=== PATIENT | female | born 2005 | race Caucasian/White ===

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

== ENCOUNTER 2024-02-13 04:40 | Inpatient (IN) | payer OTHER, SELFPAY ==
[2024-02-13 04:45] VITALS: BP 132/88; PULSE 67; O2SAT 99
[2024-02-13 04:54] VITALS: BP 110/71; PULSE 70; RESP 12; TEMP 36.7; O2SAT 98; BMI 36.7
--- NOTE | 2024-02-13 05:00 | MHC.EDTECH ---
[facility] [place] [id number]
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
[2024-02-13 06:45] LABS: MANUAL DIFF FLAG NO
[2024-02-13 06:47] LABS: Appearance Urine Clear; Color Urine Yellow; Glucose Urine UA Negative (Negative); Leukocyte Esterase Urine Negative (Negative); Nitrite Urine Negative (Negative); Specific Gravity - Urine 1.025 (1.005-1.025); Urine Blood Negative (Negative); Urine Ketones Negative (Negative); Urine Protein Negative (Neg-Trace)
[2024-02-13 06:48] LABS: UPreg QC Valid YES; Urine Pregnancy NEGATIVE (NEGATIVE)
[2024-02-13 06:58] LABS: Basophils Percent Auto 0.3 % (0-2); Eosinophils Absolute Auto 0.2 X10*3/uL (0.0-0.4); Eosinophils Percent Auto 1.7 % (0-4); Hematocrit 37.9 % (37.0-47.0); Hemoglobin 12.7 g/dl (12.0-16.0); Imm Gran Abs Auto 0.02 X10*3/uL (0.00-0.03); Imm Gran Pct Auto 0.2 % (0.0-0.4); Lymphocytes Percent Auto 33.8 % (20-40); Mean Corpuscular HGB Conc 33.5 g/dl (31.0-35.0); Mean Corpuscular Hemoglobin 28.9 pg (27.0-33.0); Mean Corpuscular Volume 86.1 fL (80.0-98.0); Mean Platelet Volume 10.1 fL (9.4-12.3); Monocytes Absolute Auto 0.5 X10*3/uL (0.1-1.2); Monocytes Percent Auto 6.1 % (2-11); Neutrophils Percent Auto 57.9 % (45-73); Platelet Count 268 X10*3/uL (160-400); Red Cell Distribution Width 11.7 % (11.0-16.0); White Blood Count 8.7 X10*3/uL (4.8-10.8)
[2024-02-13 07:03] LABS: Amphetamine Screen Urine Not Detected (Not Detect); Barbiturates, Urine Not Detected (Not Detect); Benzodiazepines Screen Urine Not Detected (Not Detect); Buprenorphine Scr Not Detected (Not Detect); Cannabinoid Screen Urine POSITIVE (Not Detect); Cocaine Screen Urine Not Detected (Not Detect); Fentanyl, urine Not Detected (Not Detect); Methadone Screen, Urine Not Detected (Not Detect); Opiate Screen Urine Not Detected (Not Detect); Oxycodone Screen Urine Not Detected (Not Detect); Phencyclidine Screen Urine Not Detected (Not Detect)
[2024-02-13 07:06] LABS: Alanine Aminotransferase 16 U/L (0-31); Alkaline Phosphatase 87 U/L (39-117); Anion Gap 13 (12-20); Aspartate Amino Transferase 17 U/L (5-31); Bilirubin Direct 0.1 mg/dL (0.0-0.5); Bilirubin Total 0.4 mg/dL (0.0-1.0); Blood Urea Nitrogen 19 mg/dL (9-16); Calcium 9.3 mg/dL (8.4-10.2); Carbon Dioxide 25 mmol/L (22-29); Chloride 106 mmol/L (96-108); Creatinine Clr Calc Pharmacy 140.9; Estimated Glomerular Filt Rate > 60; Ethanol < 10 mg/dL; Glucose Random 97 mg/dL (60-115); Magnesium 2.1 mg/dL (1.6-2.6); Potassium 3.9 mmol/L (3.3-5.1); Sodium 140 mmol/L (135-145); Total Protein 6.7 g/dL (6.5-8.0)
[2024-02-13 10:27] VITALS: BP 112/65; PULSE 70; RESP 16; O2SAT 96
--- NOTE | 2024-02-13 12:16 | PC.NURSE ---
Patient moved from ED 16 to 4, patient is calm and cooperative, alert and oriented x4, offers no complaints, respirations even and unlabored, now sitting upright in bed reading. patient aware of plan of care for inpatient bedsearch
--- NOTE | 2024-02-13 18:14 | PC.NURSE ---
SPOKE WTIH BRIELLE BOWDEN LPN FROM [employer] WITH PTS PERMISSION. UPDATED HER ON PLAN FOR INPT, BEDSEARCH ONGOING. CONTACT FOR THEM [phone]
--- NOTE | 2024-02-13 19:05 | PC.NURSE ---
patient appears to remain at rest at present asking many questions about a lateral transfer for wich t/w has answered but patient asksk in different ways seemingly wanting a different answer. patient seems in no distress.
--- NOTE | 2024-02-14 10:52 | PHA.MEDREC ---
Addendum entered by Ton Dash RPh 02/14/24 11:00: Reviewed by [facility] Original Note: Pharmacy Consult ? Medication Reconciliation Pharmacy has completed the medication reconciliation. reviewed med rec completed by nursing.
--- NOTE | 2024-02-14 11:33 | MHC.CARE ---
initial boarding completed. ID number [id number] on 02/13
[2024-02-14 14:00] VITALS: BP 111/71; PULSE 68; RESP 16; TEMP 36.7; O2SAT 98
[2024-02-14 19:46] VITALS: BP 121/74; PULSE 76; RESP 16; TEMP 36.7; O2SAT 98
--- NOTE | 2024-02-15 05:04 | PC.NURSE ---
Patient slept through the night, no distress observed/reported, med rec completed/currently not on any medication, disposition per care team is section 12 inpatient bed search, no major behavior and safety issues, patient was at time tearful, safety check maintained on 15 minutes, VSS, will continue to monitor
[2024-02-15 06:28] VITALS: BP 110/72; PULSE 76; TEMP 36.8; O2SAT 99
--- NOTE | 2024-02-15 07:03 | PC.NURSE ---
Assumed care of patient at 0645, patient appears to be in no distress this am, currently laying in bed watching TV, respirations even and unlabored. Continue plan of care for inpatient bedsearch
--- NOTE | 2024-02-15 09:47 | PC.NURSE ---
[employer] called requesting to talk with patient, patient currently sleeping. (mr. Davalos [phone])
[2024-02-15 15:00] VITALS: BP 122/66; PULSE 92; RESP 16; TEMP 36.5; O2SAT 99
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
[2024-02-15 18:30] VITALS: BMI 37.5
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
[2024-02-15 20:00] VITALS: BP 133/84; PULSE 96; RESP 15; TEMP 36.4; O2SAT 97
[2024-02-15] MEDS: Acetaminophen 325 MG TABLET 650 MG PO (21:09)
[2024-02-16 08:24] VITALS: BP 108/58; PULSE 80; RESP 16; TEMP 36.4; O2SAT 97
[2024-02-16 09:37] LABS: Estimated Average Glucose 105 mg/dL; Hemoglobin A1c % 5.3 % (<6.0)
[2024-02-16 09:59] LABS: Cholesterol 211 mg/dL (<200); HDL Cholesterol 41 mg/dL (>40); LDL Cholesterol Calculated 111 mg/dL (<100); Triglycerides 296 mg/dL (<150)
--- NOTE | 2024-02-16 12:35 | P.HPPS_ITS ---
HPI Date of Service: 02/16/24 Chief Complaint: depressed/SI Sources of Information: patient interviewed, chart reviewed and crisis/core team assessment reviewed HPI Subjective Notes: Savage Warning and Conditional Voluntary Healthcare Proxy: No Guardianship: No Medical Problems Affecting Mental Status: No Narrative: 18 yo female, hx of bipolar disorder, reportedly abruptly stopped medications 2- 3 weeks ago with exacerbation of sx. I feel ugly I have an ugly body and now an ugly face . I want to be pretty, I have ruined myself. Pt reports SIBS (burning), SI with plan without hx of attempts and cyclic episodes of insomnia, poor appetite and recent weight loss. Reports irritability and presents with significant irritability and resistence to interview. Reports meds are not working -abilify, lamictal, trazodone, hydroxyzine and are causing weight gain. Pt leaves our meeting a few minutes into it, yelling that she does not tolerate repetitive questions and people need to listen once or they are out of luck. Past Psychiatric History: Refuses to answer Medical Evaluation Reviewed: Yes [facility] Medical History (Updated 02/16/24 @ 19:39 by Marlena Sanchez APRN) Bipolar disorder Family History: mother is bipolar Social History: Working at [employer]. Substance History: cannabis Trauma History: Refuses to answer Diagnostics Vital Signs (24Hr): Vital Signs - 24 hr 02/15/24 15:00 02/15/24 20:00 02/16/24 08:24 Temperature 97.7 F 97.6 F 97.6 F Pulse Rate 92 96 80 Respiratory Rate 16 15 16 Blood Pressure 122/66 133/84 108/58 L Pulse Oximetry 99 97 97 Oxygen Delivery Method Room Air Room Air BMI result Body Mass Index 37.5 Labs 02/13/24 06:39 02/13/24 06:39 Labs: Laboratory Results - last 48 hr 02/16/24 08:51 Estimat Average Glucose 105 Hemoglobin A1c % 5.3 Triglycerides 296 H Cholesterol 211 H LDL Cholesterol, Calc 111 H HDL Cholesterol 41 TSH 3.10 Meds/Allergies Meds Home Medications ?Medication ?Instructions ?Recorded ?Confirmed ?Type No Known Home Meds 02/13/24 02/13/24 History Allergies Allergies Allergy/AdvReac Type Severity Reaction Status Date / Time No Known Allergies Allergy Verified 02/13/24 04:59 Mental Status Exam Mental Status Exam Patient Appearance: Appropriate Patient Orientation: Person, Place, Time and Situation Level of Consciousness: Alert Patient Behavior: Talkative, Restless, Belligerent, Resistive to Care, Avoidant, Distractible, Crying, Impulsive and Poor Eye Contact Mood Description: Withdrawn, Depressed, Hostile, Labile and Angry Affect Description: Hostile, Labile and Angry Patient Cognition Impaired: No Ability to Follow Directions: Fair Speech Pattern: Spontaneous Speech Memory Description: Episodic Impaired Hallucinations: None Delusions: Not Present Thought Process: Racing, Distracted and Rumination Thought Content: positive for Circumstantial, positive for Tangential and positive for Suicidal Ideation Depressive Symptoms: Increased Irritability, Difficulty Sleeping, Changes in Appetite, Significant Weight Loss, Loss of Int. in Activity, Feelings of Worthlessness, Hopelessness, Unhappiness, Thoughts of /Suicide, Low Self Esteem, Loss of Energy and Difficulty Concentrating Abnormal Motor Activity Signs and Symptoms: Agitation and Restlessness Judgement: Poor Assessment & Plan Assessment & Plan (1) Bipolar disorder: Status: Acute Code(s): F31.9 - Bipolar disorder, unspecified Plan Bipolar Disorder. Plan: Admit, CV, 15 minute checks EKG Pt refusing to discuss meds today. Will suggest return to [facility] to minimize her concerns about weight gain. Continue Olanzapine prn Full milieu encouraged Collateral Contact Discharge planning Patient educated on: other Reason for continued inpatient stay Substantial Risk for: rapid decompensation Statement Statement: I have reviewed the history and physical and performed a pertinent examination on my patient. No changes have occurred unless specified. If the History and Physical was not performed prior to admission, the Hospitalist's service will be consulted for completing the admission physical. Time Spent With Patient Time: Total time managing care of this patient today ____ minutes.
[2024-02-16] MEDS: OLANZapine 5 MG TABLET PO (19:37)
[2024-02-16 20:00] VITALS: BP 110/76; PULSE 88; RESP 20; TEMP 36.4; O2SAT 99
[2024-02-16] MEDS: traZODone HCL 50 MG TABLET PO (22:22)
[2024-02-17 08:00] VITALS: BP 98/74; PULSE 100; RESP 16; TEMP 36.4; O2SAT 99
--- NOTE | 2024-02-17 11:16 | HO.PSYCHPN ---
Subjective Subjective Date of Service: 02/17/24 Reason For Visit: depressed/SI Subjective Notes: Conditional Voluntary Healthcare Proxy: No Guardianship: No Medical Problems Affecting Mental Status: No Interim History: Met with pt and Wes ARCEO Discussed medications. Pt not wanting to be sedate. Agreed to stop Abilify, replace with Vraylar and re-start Lamictal, both being agents with good SE profiles, less sedating, less weight gain. Team reports episodic lability and crying, mostly related to relationship issues. Medication Compliance: Yes Side effects from medications: Yes (sedation, weight gain) Attending Groups: Intermittent Review of Systems Acute medical concerns: No Medical Review of Systems: unchanged Review of Systems Review of Systems Yes all other systems are reviewed and are negative Mental Status Exam Mental Status Exam Patient Appearance: Appropriate Patient Orientation: Person, Place, Time and Situation Level of Consciousness: Alert Patient Behavior: Talkative, Restless, Belligerent, Resistive to Care, Avoidant, Distractible, Crying, Impulsive and Poor Eye Contact Mood Description: Withdrawn, Depressed, Hostile, Labile and Angry Affect Description: Hostile, Labile and Angry Patient Cognition Impaired: No Ability to Follow Directions: Fair Speech Pattern: Spontaneous Speech Memory Description: Episodic Impaired Hallucinations: None Delusions: Not Present Thought Process: Racing, Distracted and Rumination Thought Content: positive for Circumstantial, positive for Tangential and positive for Suicidal Ideation Depressive Symptoms: Increased Irritability, Difficulty Sleeping, Changes in Appetite, Significant Weight Loss, Loss of Int. in Activity, Feelings of Worthlessness, Hopelessness, Unhappiness, Thoughts of /Suicide, Low Self Esteem, Loss of Energy and Difficulty Concentrating Abnormal Motor Activity Signs and Symptoms: Agitation and Restlessness Judgement: Poor Diagnostics Vital Signs (24Hr): Vital Signs - 24 hr 02/16/24 20:00 02/17/24 08:00 Temperature 97.6 F 97.5 F Pulse Rate 88 100 Respiratory Rate 20 16 Blood Pressure 110/76 98/74 Pulse Oximetry 99 99 Oxygen Delivery Method Room Air Room Air BMI result Body Mass Index 37.5 Labs 02/13/24 06:39 02/13/24 06:39 Labs: Laboratory Results - last 48 hr 02/16/24 08:51 Estimat Average Glucose 105 Hemoglobin A1c % 5.3 Triglycerides 296 H Cholesterol 211 H LDL Cholesterol, Calc 111 H HDL Cholesterol 41 TSH 3.10 Medications Medications Current Medications Acetaminophen (Acetaminophen 325 Mg Tablet) 650 mg PO Q6H PRN PRN Reason: Headache/Pain Mild Scale (1-3) Last Admin: 02/15/24 21:09 Dose: 650 mg Al Hydroxide/Mg Hydroxide (Magnesium Hydrox/Alum Hydrox 30 Ml Oral.Susp) 30 ml PO Q6H PRN PRN Reason: Heartburn/Nausea Hydroxyzine HCl (Hydroxyzine Hcl 25 Mg Tablet) 25 mg PO Q6H PRN PRN Reason: Anxiety Magnesium Hydroxide (Milk Of Magnesia 30 Ml Oral.Susp) 30 ml PO DAILY PRN PRN Reason: Constipation Nicotine (Nicotine 21 Mg Patch.Td24) 21 mg TRANSDERMA DAILY PRN PRN Reason: smoking cessation Nicotine Polacrilex (Nicotine Polacrilex 2 Mg Gum) 4 mg BUCCAL Q2H PRN PRN Reason: Nicotine Cravings Olanzapine (Olanzapine 5 Mg Tablet) 5 mg PO TID PRN PRN Reason: agitation Last Admin: 02/16/24 19:37 Dose: 5 mg Trazodone HCl (Trazodone Hcl 50 Mg Tablet) 50 mg PO BEDTIME MRX1 PRN PRN Reason: Insomnia Last Admin: 02/16/24 22:22 Dose: 50 mg Allergies Allergies Allergy/AdvReac Type Severity Reaction Status Date / Time No Known Allergies Allergy Verified 02/13/24 04:59 Assessment & Plan Assessment & Plan (1) Bipolar disorder: Status: Acute Code(s): F31.9 - Bipolar disorder, unspecified Plan Bipolar Disorder. Plan: Admit, CV, 15 minute checks EKG Pt refusing to discuss meds today. Will suggest return to [facility] to minimize her concerns about weight gain. Continue Olanzapine prn Full milieu encouraged Collateral Contact Discharge planning 02/16: JEFFRY Burgos Lamictal 50 mg HS Vraylar 3 mg a.m. Reason for continued inpatient stay Substantial Risk for: rapid decompensation Time Spent With Patient Time: Total time managing care of this patient today ____ minutes.
[2024-02-17 20:00] VITALS: RESP 18
[2024-02-17] MEDS: lamoTRIgine 25 MG TABLET 50 MG PO (23:20)
[2024-02-18 08:20] VITALS: BP 131/72; PULSE 73; RESP 18; TEMP 36.9; O2SAT 99
--- NOTE | 2024-02-18 10:31 | P.PNPSI_ITS ---
Subjective Subjective Date of Service: 02/18/24 Reason For Visit: depressed/SI Subjective Notes: Conditional Voluntary Healthcare Proxy: No Guardianship: No Medical Problems Affecting Mental Status: No Interim History: Angry, agitated with medications as she believes lamictal made her sedate. Refused Vraylar as well. Met with pt and Wes Araya. Review of job frida requirements to return to her course work-therapy, medications, appt attendance. Reviewed meds again with pt. Will continue with Lamictal, Vraylar in lower dosages. Pt to discuss living with boyfriend as she reports she had been asked to leave mother's home. If boyfriend is unable to help pt with housing, she will allow a call to mother as she reports both she and mother do not want her going to custodial. Medication Compliance: Intermittent Side effects from medications: No Attending Groups: Intermittent Review of Systems Acute medical concerns: No Medical Review of Systems: unchanged Review of Systems Review of Systems feeling tired Mental Status Exam Mental Status Exam Patient Appearance: Appropriate Patient Orientation: Person, Place, Time and Situation Level of Consciousness: Alert Patient Behavior: Talkative, Restless, Belligerent, Resistive to Care, Avoidant, Distractible, Crying, Impulsive and Poor Eye Contact Mood Description: Withdrawn, Depressed, Hostile, Labile and Angry Affect Description: Hostile, Labile and Angry Patient Cognition Impaired: No Ability to Follow Directions: Fair Speech Pattern: Spontaneous Speech Memory Description: Episodic Impaired Hallucinations: None Delusions: Not Present Thought Process: Racing, Distracted and Rumination Thought Content: positive for Circumstantial, positive for Tangential and positive for Suicidal Ideation Depressive Symptoms: Increased Irritability, Difficulty Sleeping, Changes in Appetite, Significant Weight Loss, Loss of Int. in Activity, Feelings of Worthlessness, Hopelessness, Unhappiness, Thoughts of /Suicide, Low Self Esteem, Loss of Energy and Difficulty Concentrating Abnormal Motor Activity Signs and Symptoms: Agitation and Restlessness Judgement: Poor Diagnostics Vital Signs (24Hr): Vital Signs - 24 hr 02/17/24 20:00 02/18/24 08:20 Temperature 98.5 F Pulse Rate 73 Respiratory Rate 18 18 Blood Pressure 131/72 Pulse Oximetry 99 Oxygen Delivery Method Room Air BMI result Body Mass Index 37.5 Labs 02/13/24 06:39 02/13/24 06:39 Medications Medications Current Medications Acetaminophen (Acetaminophen 325 Mg Tablet) 650 mg PO Q6H PRN PRN Reason: Headache/Pain Mild Scale (1-3) Last Admin: 02/15/24 21:09 Dose: 650 mg Al Hydroxide/Mg Hydroxide (Magnesium Hydrox/Alum Hydrox 30 Ml Oral.Susp) 30 ml PO Q6H PRN PRN Reason: Heartburn/Nausea Cariprazine (Cariprazine Hcl 3 Mg Capsule) 3 mg PO DAILY YOSHI Last Admin: 02/18/24 10:23 Dose: Not Given Hydroxyzine HCl (Hydroxyzine Hcl 25 Mg Tablet) 25 mg PO Q6H PRN PRN Reason: Anxiety Lamotrigine (Lamotrigine 25 Mg Tablet) 50 mg PO BEDTIME YOSHI Last Admin: 02/17/24 23:20 Dose: 50 mg Magnesium Hydroxide (Milk Of Magnesia 30 Ml Oral.Susp) 30 ml PO DAILY PRN PRN Reason: Constipation Nicotine (Nicotine 21 Mg Patch.Td24) 21 mg TRANSDERMA DAILY PRN PRN Reason: smoking cessation Nicotine Polacrilex (Nicotine Polacrilex 2 Mg Gum) 4 mg BUCCAL Q2H PRN PRN Reason: Nicotine Cravings Olanzapine (Olanzapine 5 Mg Tablet) 5 mg PO TID PRN PRN Reason: agitation Last Admin: 02/16/24 19:37 Dose: 5 mg Trazodone HCl (Trazodone Hcl 50 Mg Tablet) 50 mg PO BEDTIME MRX1 PRN PRN Reason: Insomnia Last Admin: 02/16/24 22:22 Dose: 50 mg Allergies Allergies Allergy/AdvReac Type Severity Reaction Status Date / Time No Known Allergies Allergy Verified 02/13/24 04:59 Assessment & Plan Assessment & Plan (1) Bipolar disorder: Status: Acute Code(s): F31.9 - Bipolar disorder, unspecified Plan Bipolar Disorder. Plan: Admit, CV, 15 minute checks EKG Pt refusing to discuss meds today. Will suggest return to [facility] to minimize her concerns about weight gain. Continue Olanzapine prn Full milieu encouraged Collateral Contact Discharge planning 02/17- Vraylar 1.5 mg daily Lamictal 12.5 mg daily Reason for continued inpatient stay Substantial Risk for: harm to self and rapid decompensation Time Spent With Patient Time: Total time managing care of this patient today ____ minutes.
[2024-02-18 14:22] VITALS: BMI 37.3
[2024-02-18 19:35] VITALS: BP 115/66; PULSE 85; RESP 18; TEMP 37; O2SAT 98
[2024-02-18] MEDS: lamoTRIgine 25 MG TABLET 12.5 MG PO (21:27)
[2024-02-19 08:00] VITALS: BP 119/73; PULSE 93; RESP 16; TEMP 36.9; O2SAT 98
--- NOTE | 2024-02-19 11:43 | P.PNPSI_ITS ---
Subjective Subjective Date of Service: 02/19/24 Reason For Visit: depressed/SI Subjective Notes: Conditional Voluntary Interim History: Reviewed with Dr. Hsu. Labile. Calm and cooperative when meeting with patient. She reports he father plans on finding her a place to stay after discharge. Pt stated, I was feeling suicidal because [facility] feels like senior living and I didn't have time to do the things I wanted to do . Later on, pt observed crying loudly in room stating, I don't want to live anymore! Someone just kill me! pt was placed on 5 minute safety checks. Refused Vraylar this morning. Medication Compliance: Intermittent Review of Systems Constitutional: Reports as per HPI Eyes: Reports as per HPI Reports as per HPI Cardiovascular: Reports as per HPI Respiratory: Reports as per HPI Gastrointestinal: Reports as per HPI Genitourinary: Reports as per HPI Musculoskeletal: Reports as per HPI Skin/Breast: Reports as per HPI Reports as per HPI Psychiatric: Reports as per HPI Endocrine: Reports as per HPI Hematologic/Lymphatic: Reports as per HPI Allergic/Immunologic: Reports as per HPI Mental Status Exam Mental Status Exam Narrative: Pt is alert and oriented; behavior is calm, crying loudly; dressed in casual attire; mood is described as anxious and depressed presents labile; eye contact appropriate; Speech is normal rate, volume and not pressured; thought process is organized and goal directed; Thought content is on tx; pt yelling out, asking people to kill her. Diagnostics Vital Signs (24Hr): Vital Signs - 24 hr 02/18/24 19:35 Temperature 98.6 F Pulse Rate 85 Respiratory Rate 18 Blood Pressure 115/66 Pulse Oximetry 98 Oxygen Delivery Method Room Air BMI result Body Mass Index 37.3 Labs 02/13/24 06:39 02/13/24 06:39 Medications Medications Current Medications Acetaminophen (Acetaminophen 325 Mg Tablet) 650 mg PO Q6H PRN PRN Reason: Headache/Pain Mild Scale (1-3) Last Admin: 02/15/24 21:09 Dose: 650 mg Al Hydroxide/Mg Hydroxide (Magnesium Hydrox/Alum Hydrox 30 Ml Oral.Susp) 30 ml PO Q6H PRN PRN Reason: Heartburn/Nausea Cariprazine (Cariprazine Hcl 1.5 Mg Capsule) 1.5 mg PO DAILY YOSHI Last Admin: 02/19/24 11:32 Dose: Not Given Hydroxyzine HCl (Hydroxyzine Hcl 25 Mg Tablet) 25 mg PO Q6H PRN PRN Reason: Anxiety Lamotrigine (Lamotrigine 25 Mg Tablet) 12.5 mg PO BEDTIME YOSHI Last Admin: 02/18/24 21:27 Dose: 12.5 mg Magnesium Hydroxide (Milk Of Magnesia 30 Ml Oral.Susp) 30 ml PO DAILY PRN PRN Reason: Constipation Nicotine (Nicotine 21 Mg Patch.Td24) 21 mg TRANSDERMA DAILY PRN PRN Reason: smoking cessation Nicotine Polacrilex (Nicotine Polacrilex 2 Mg Gum) 4 mg BUCCAL Q2H PRN PRN Reason: Nicotine Cravings Olanzapine (Olanzapine 5 Mg Tablet) 5 mg PO TID PRN PRN Reason: agitation Last Admin: 02/16/24 19:37 Dose: 5 mg Allergies Allergies Allergy/AdvReac Type Severity Reaction Status Date / Time No Known Allergies Allergy Verified 02/13/24 04:59 Assessment & Plan Assessment & Plan (1) Bipolar disorder: Status: Acute Code(s): F31.9 - Bipolar disorder, unspecified Plan Bipolar Disorder. Plan: Admit, CV, 15 minute checks EKG Pt refusing to discuss meds today. Will suggest return to [facility] to minimize her concerns about weight gain. Continue Olanzapine prn Full milieu encouraged Collateral Contact Discharge planning 02/17- Vraylar 1.5 mg daily Lamictal 12.5 mg daily 02/18: Labile. Calm and cooperative when meeting with patient. She reports he father plans on finding her a place to stay after discharge. Pt stated, I was feeling suicidal because [facility] feels like senior living and I didn't have time to do the things I wanted to do . Later on, pt observed crying loudly in room stating, I don't want to live anymore! Someone just kill me! pt was placed on 5 minute safety checks. Refused Vraylar this morning. Patient educated on: diagnosis, medication risk/benefits and therapeutic strategies Reason for continued inpatient stay Substantial Risk for: harm to self and med/psych decompensation Time Spent With Patient Time: Total time managing care of this patient today _20___ minutes.
[2024-02-19 20:24] VITALS: BP 113/68; PULSE 85; TEMP 36.9; O2SAT 98
[2024-02-19] MEDS: lamoTRIgine 25 MG TABLET 12.5 MG PO (20:43)
[2024-02-20 08:10] VITALS: BP 115/70; PULSE 99; RESP 18; TEMP 36.4; O2SAT 98
--- NOTE | 2024-02-20 10:02 | HO.PSYCHPN ---
Subjective Subjective Date of Service: 02/20/24 Reason For Visit: depressed/SI Interim History: Met with patient; discussed with team Patient says she is feeling pretty good wants discharge today. She denies any SI or urges to self-harm. She says that she now realizes she already had a therapist, someone at [facility] named either Abdiel or Cherry. Also says she has psychiatrist that she set up on her own. Patient says she found a place to stay and will be staying at her mother's friend's house but that she needs to go to day. Ancillary Services Manager Therapy inquired as to why she said because her mother is able to come and pick her up today but will not be available until later in the afternoon or evening on Thursday. Ancillary Services Manager Therapy explained that team concluded that given patient struggles in the community it was in her best interest to hold her over the weekend so that aftercare can be thoroughly set up and that engineering writer agreed with this plan. Patient asked over and over for discharge today, saying it was not fair, saying that no one cares about her and people truly do not want to help her. That said she was able to remain in overall good behavioral and impulse control. Regarding medication, she says she will continue taking Lamictal. However she does not want Vraylar; after having read about it she does not like side-effect profile Mental Status Exam Mental Status Exam Narrative: Pt is alert and oriented; behavior is mostly cooperative and calm though intermittently irritable and sometimes acting out; patient is not in distress; dressed in casual attire with adequate hygiene; mood is described as good and affect congruent though somewhat constricted; eye contact appropriate; Speech is normal rate, volume and prosody and not pressured; no psychomotor agitation/retardation present; thought process is organized and goal directed; Thought content is on discharge; otherwise pertinent to relevant topics and without any delusional content, paranoid ideations or grandiosity; denies any SI/HI. There is no evidence of perceptual disturbance. Patients insight and judgment impaired but adequate and likely at baseline Diagnostics Vital Signs (24Hr): Vital Signs - 24 hr 02/19/24 20:24 02/20/24 08:10 Temperature 98.5 F 97.5 F Pulse Rate 85 99 Respiratory Rate 18 Blood Pressure 113/68 115/70 Pulse Oximetry 98 98 Oxygen Delivery Method Room Air Room Air BMI result Body Mass Index 37.3 Labs 02/13/24 06:39 02/13/24 06:39 Medications Medications Current Medications Acetaminophen (Acetaminophen 325 Mg Tablet) 650 mg PO Q6H PRN PRN Reason: Headache/Pain Mild Scale (1-3) Last Admin: 02/15/24 21:09 Dose: 650 mg Al Hydroxide/Mg Hydroxide (Magnesium Hydrox/Alum Hydrox 30 Ml Oral.Susp) 30 ml PO Q6H PRN PRN Reason: Heartburn/Nausea Cariprazine (Cariprazine Hcl 1.5 Mg Capsule) 1.5 mg PO DAILY [facility] Last Admin: 02/20/24 08:22 Dose: Not Given Hydroxyzine HCl (Hydroxyzine Hcl 25 Mg Tablet) 25 mg PO Q6H PRN PRN Reason: Anxiety Lamotrigine (Lamotrigine 25 Mg Tablet) 12.5 mg PO BEDTIME [facility] Last Admin: 02/19/24 20:43 Dose: 12.5 mg Magnesium Hydroxide (Milk Of Magnesia 30 Ml Oral.Susp) 30 ml PO DAILY PRN PRN Reason: Constipation Nicotine (Nicotine 21 Mg Patch.Td24) 21 mg TRANSDERMA DAILY PRN PRN Reason: smoking cessation Nicotine Polacrilex (Nicotine Polacrilex 2 Mg Gum) 4 mg BUCCAL Q2H PRN PRN Reason: Nicotine Cravings Olanzapine (Olanzapine 5 Mg Tablet) 5 mg PO TID PRN PRN Reason: agitation Last Admin: 02/16/24 19:37 Dose: 5 mg Allergies Allergies Allergy/AdvReac Type Severity Reaction Status Date / Time No Known Allergies Allergy Verified 02/13/24 04:59 Assessment & Plan Assessment & Plan (1) Bipolar disorder: Status: Acute Code(s): F31.9 - Bipolar disorder, unspecified Plan Bipolar Disorder. 02/17- Vraylar 1.5 mg daily Lamictal 12.5 mg daily 02/18: Labile. Calm and cooperative when meeting with patient. She reports he father plans on finding her a place to stay after discharge. Pt stated, I was feeling suicidal because [facility] feels like long term and I didn't have time to do the things I wanted to do . Later on, pt observed crying loudly in room stating, I don't want to live anymore! Someone just kill me! pt was placed on 5 minute safety checks. Refused Vraylar this morning. 8/24 Patient says she is feeling pretty good wants discharge today. She denies any SI or urges to self-harm. She says that she now realizes she already had a therapist, someone at [facility] named either Abdiel or Cherry. Also says she has psychiatrist that she set up on her own. Patient says she found a place to stay and will be staying at her mother's friend's house but that she needs to go to day. Ancillary Services Manager Therapy inquired as to why she said because her mother is able to come and pick her up today but will not be available until later in the afternoon or evening on Thursday. Ancillary Services Manager Therapy explained that team concluded that given patient struggles in the community it was in her best interest to hold her over the weekend so that aftercare can be thoroughly set up and that engineering writer agreed with this plan. Patient asked over and over for discharge today, saying it was not fair, saying that no one cares about her and people truly do not want to help her. That said she was able to remain in overall good behavioral and impulse control. -Regarding medication, she says she will continue taking Lamictal. However she does not want Vraylar; after having read about it she does not like side-effect profile impression: Ancillary Services Manager Therapy agrees that discharging patient on the weekend is premature given her behaviors and struggles in the community prior to this admission; she remains with highly emotionally reactive and as recently as just yesterday she was yelling in the hallway for someone to kill her. Ancillary Services Manager Therapy understands that in the moment patient is just expressing herself and not actually wanting to ; however it seems in her best interest that she remain on the unit for her primary team to return so that she can receive the benefits from social work helping to secure a more stable discharge plan; it seems very unlikely that she has set up for herself a reliable therapist and prescriber, both of which she will need in order to remain stable, between Thursday evening and today. Plan: Admit, CV, 15 minute checks EKG Continue Lamictal Will discontinue Vraylar since she is refusing to take it Continue Olanzapine prn Full milieu encouraged Collateral Contact Discharge planning Patient educated on: diagnosis, medication risk/benefits and therapeutic strategies Informed Consent: understands Reason for continued inpatient stay Substantial Risk for: rapid decompensation Time Spent With Patient Time: Total time managing care of this patient today ____ minutes.
[2024-02-20 20:07] VITALS: BP 121/72; PULSE 99; TEMP 36.7; O2SAT 96
[2024-02-20] MEDS: hydrOXYzine HCL 25 MG TABLET PO (20:30)
[2024-02-20] MEDS: lamoTRIgine 25 MG TABLET 12.5 MG PO (20:30)
[2024-02-20] MEDS: OLANZapine 5 MG TABLET PO (20:30)
[2024-02-21 20:00] VITALS: BP 117/68; PULSE 74; TEMP 36.9; O2SAT 100
[2024-02-21] MEDS: lamoTRIgine 25 MG TABLET 12.5 MG PO (21:17)
--- NOTE | 2024-02-21 23:43 | P.PNPSI_ITS ---
Subjective Subjective Date of Service: 02/21/24 Reason For Visit: depressed/SI Interim History: Met with patient; discussed with team Patient calm most of the day. Towards the later afternoon she started crying saying she no longer has any were to go. Patient was going to go to stay with a friend of her mother's. Client Service Executive tried to discuss; patient said her mom no longer wants to go there , worried that patient will ruin her reputation... Patient tearful saying she has no where to go. Client Service Executive tried to discuss disposition plans but patient did not want to talk further Mental Status Exam Mental Status Exam Narrative: Pt is alert and oriented; behavior is mostly cooperative and calm though intermittently irritable and sometimes acting out; today more to; patient is not in distress; dressed in casual attire with adequate hygiene; mood is described as i have no where to go and affect congruent tearful, constricted; eye contact appropriate; Speech is normal rate, volume and prosody and not pressured; no psychomotor agitation/retardation present; thought process is organized and goal directed; Thought content is on discharge; otherwise pertinent to relevant topics and without any delusional content, paranoid ideations or grandiosity; denies any SI/HI. There is no evidence of perceptual disturbance. Patients insight and judgment impaired but adequate and likely at baseline Diagnostics Vital Signs (24Hr): Vital Signs - 24 hr 02/21/24 20:00 Temperature 98.4 F Pulse Rate 74 Blood Pressure 117/68 Pulse Oximetry 100 Oxygen Delivery Method Room Air BMI result Body Mass Index 37.3 Labs 02/13/24 06:39 02/13/24 06:39 Medications Medications Current Medications Acetaminophen (Acetaminophen 325 Mg Tablet) 650 mg PO Q6H PRN PRN Reason: Headache/Pain Mild Scale (1-3) Last Admin: 02/15/24 21:09 Dose: 650 mg Al Hydroxide/Mg Hydroxide (Magnesium Hydrox/Alum Hydrox 30 Ml Oral.Susp) 30 ml PO Q6H PRN PRN Reason: Heartburn/Nausea Hydroxyzine HCl (Hydroxyzine Hcl 25 Mg Tablet) 25 mg PO Q6H PRN PRN Reason: Anxiety Last Admin: 02/20/24 20:30 Dose: 25 mg Lamotrigine (Lamotrigine 25 Mg Tablet) 12.5 mg PO BEDTIME YOSHI Last Admin: 02/21/24 21:17 Dose: 12.5 mg Magnesium Hydroxide (Milk Of Magnesia 30 Ml Oral.Susp) 30 ml PO DAILY PRN PRN Reason: Constipation Nicotine (Nicotine 21 Mg Patch.Td24) 21 mg TRANSDERMA DAILY PRN PRN Reason: smoking cessation Nicotine Polacrilex (Nicotine Polacrilex 2 Mg Gum) 4 mg BUCCAL Q2H PRN PRN Reason: Nicotine Cravings Olanzapine (Olanzapine 5 Mg Tablet) 5 mg PO TID PRN PRN Reason: agitation Last Admin: 02/20/24 20:30 Dose: 5 mg Allergies Allergies Allergy/AdvReac Type Severity Reaction Status Date / Time No Known Allergies Allergy Verified 02/13/24 04:59 Assessment & Plan Assessment & Plan (1) Bipolar disorder: Status: Acute Code(s): F31.9 - Bipolar disorder, unspecified Plan Bipolar Disorder. 02/17- Vraylar 1.5 mg daily Lamictal 12.5 mg daily 02/18: Labile. Calm and cooperative when meeting with patient. She reports he father plans on finding her a place to stay after discharge. Pt stated, I was feeling suicidal because [employer] feels like fdc and I didn't have time to do the things I wanted to do . Later on, pt observed crying loudly in room stating, I don't want to live anymore! Someone just kill me! pt was placed on 5 minute safety checks. Refused Vraylar this morning. 02/19 Patient says she is feeling pretty good wants discharge today. She denies any SI or urges to self-harm. She says that she now realizes she already had a therapist, someone at [facility] named either Abdiel or Cherry. Also says she has psychiatrist that she set up on her own. Patient says she found a place to stay and will be staying at her mother's friend's house but that she needs to go to day. Client Service Executive inquired as to why she said because her mother is able to come and pick her up today but will not be available until later in the afternoon or evening on Thursday. Client Service Executive explained that team concluded that given patient struggles in the community it was in her best interest to hold her over the weekend so that aftercare can be thoroughly set up and that policy writer sales agreed with this plan. Patient asked over and over for discharge today, saying it was not fair, saying that no one cares about her and people truly do not want to help her. That said she was able to remain in overall good behavioral and impulse control. -Regarding medication, she says she will continue taking Lamictal. However she does not want Vraylar; after having read about it she does not like side-effect profile 02/20 Patient calm most of the day. Towards the later afternoon she started crying saying she no longer has any were to go. Patient was going to go to stay with a friend of her mother's. Client Service Executive tried to discuss; patient said her mom no longer wants to go there , worried that patient will ruin her reputation... Patient tearful saying she has no where to go. Client Service Executive tried to discuss disposition plans but patient did not want to talk further impression: Client Service Executive agrees that discharging patient on the weekend is premature given her behaviors and struggles in the community prior to this admission; she remains with highly emotionally reactive and as recently as just yesterday she was yelling in the hallway for someone to kill her. Client Service Executive understands that in the moment patient is just expressing herself and not actually wanting to ; however it seems in her best interest that she remain on the unit for her primary team to return so that she can receive the benefits from social work helping to secure a more stable discharge plan; it seems very unlikely that she has set up for herself a reliable therapist and prescriber, both of which she will need in order to remain stable, between Thursday evening and today. Plan: Admit, CV, 15 minute checks EKG Continue Lamictal Will discontinue Vraylar since she is refusing to take it Continue Olanzapine prn Full milieu encouraged Collateral Contact Discharge planning Patient educated on: diagnosis and therapeutic strategies Informed Consent: understands and further education needed Reason for continued inpatient stay Substantial Risk for: rapid decompensation Time Spent With Patient Time: Total time managing care of this patient today ____ minutes.
[2024-02-22 08:19] VITALS: BP 132/67; PULSE 80; RESP 18; TEMP 36.4; O2SAT 96
--- NOTE | 2024-02-22 12:41 | P.PNPSI_ITS ---
Subjective Subjective Date of Service: 02/22/24 Reason For Visit: depressed/SI Subjective Notes: Conditional Voluntary Healthcare Proxy: No Guardianship: No Medical Problems Affecting Mental Status: No Interim History: Met with pt and together we called her father Mekhi, who is on the [facility] [phone]. Discussed history-he reports he does not believe pt is able to work and asks that we begin disability application with her. Discussed that we are starting this process, along with [facility] case mgt application, housing applications and [facility] applications. Mekhi reports he brought pt back to mom at age 15 and she has had a previous dx of ADHD, ODD, Bipolar II. Mom and step father agreed to take responsibility for her. He is not in a current position to offer housing, but wants to help and be available to pt in any way. Reports he is estranged from his family in the area and has no one to reach out to regarding options for safe living for pt. We discussed that pt, going to the street or an adult care home would place her at significant risk due to her lack of community exposure and urban knowledge, in addition to safety risks regarding assault, being taken advantage of. He agrees as well as pt agrees with this. Pt he reports has burned bridges with family due to unmanaged symptoms of illness. Pt concurs and acknowledges that sx mgt is important to address in moving forward. Pt tolerating Lamictal, will increase today. No behavioral issues on the unit. She is engaged. She did make a supportive comment to a peer, telling him his was beautiful . This peer inferred the comment not as it was meant and conflict arose which pt apologized for-a good example of the lack of social knowledge needed in community for her safety, and her lack of understanding of this. She is willing to work on making calls for services and is active in assisting in application processes for services today. We also contacted boyfriend Rock [phone] who offers his support and input on what services would help pt in community. She also agrees with this. Medication Compliance: Yes Side effects from medications: No Attending Groups: Intermittent Review of Systems Acute medical concerns: No Medical Review of Systems: unchanged Review of Systems Review of Systems Yes all other systems are reviewed and are negative Mental Status Exam Mental Status Exam Patient Appearance: Appropriate Patient Orientation: Person, Place, Time and Situation Level of Consciousness: Alert Patient Behavior: Appropriate, Talkative, Cooperative, Anxious, Distractible and Good Eye Contact Mood Description: Anxious and Apprehensive Affect Description: Anxious and Apprehensive Patient Cognition Impaired: No Ability to Follow Directions: Fair Speech Pattern: Spontaneous Speech Memory Description: Intact Hallucinations: None Delusions: Not Present Thought Process: Distracted Thought Content: positive for Circumstantial Depressive Symptoms: Difficulty Concentrating Abnormal Motor Activity Signs and Symptoms: Restlessness Judgement: Fair Diagnostics Vital Signs (24Hr): Vital Signs - 24 hr 02/21/24 20:00 02/22/24 08:19 Temperature 98.4 F 97.5 F Pulse Rate 74 80 Respiratory Rate 18 Blood Pressure 117/68 132/67 Pulse Oximetry 100 96 Oxygen Delivery Method Room Air Room Air BMI result Body Mass Index 37.3 Labs 02/13/24 06:39 02/13/24 06:39 Medications Medications Current Medications Acetaminophen (Acetaminophen 325 Mg Tablet) 650 mg PO Q6H PRN PRN Reason: Headache/Pain Mild Scale (1-3) Last Admin: 02/15/24 21:09 Dose: 650 mg Al Hydroxide/Mg Hydroxide (Magnesium Hydrox/Alum Hydrox 30 Ml Oral.Susp) 30 ml PO Q6H PRN PRN Reason: Heartburn/Nausea Hydroxyzine HCl (Hydroxyzine Hcl 25 Mg Tablet) 25 mg PO Q6H PRN PRN Reason: Anxiety Last Admin: 02/20/24 20:30 Dose: 25 mg Lamotrigine (Lamotrigine 25 Mg Tablet) 12.5 mg PO BEDTIME YOSHI Last Admin: 02/21/24 21:17 Dose: 12.5 mg Magnesium Hydroxide (Milk Of Magnesia 30 Ml Oral.Susp) 30 ml PO DAILY PRN PRN Reason: Constipation Nicotine (Nicotine 21 Mg Patch.Td24) 21 mg TRANSDERMA DAILY PRN PRN Reason: smoking cessation Nicotine Polacrilex (Nicotine Polacrilex 2 Mg Gum) 4 mg BUCCAL Q2H PRN PRN Reason: Nicotine Cravings Olanzapine (Olanzapine 5 Mg Tablet) 5 mg PO TID PRN PRN Reason: agitation Last Admin: 02/20/24 20:30 Dose: 5 mg Allergies Allergies Allergy/AdvReac Type Severity Reaction Status Date / Time No Known Allergies Allergy Verified 02/13/24 04:59 Assessment & Plan Assessment & Plan (1) Bipolar disorder: Status: Acute Code(s): F31.9 - Bipolar disorder, unspecified Plan Bipolar Disorder. 02/17- Vraylar 1.5 mg daily Lamictal 12.5 mg daily 02/18: Labile. Calm and cooperative when meeting with patient. She reports he father plans on finding her a place to stay after discharge. Pt stated, I was feeling suicidal because [employer] feels like jail and I didn't have time to do the things I wanted to do . Later on, pt observed crying loudly in room stating, I don't want to live anymore! Someone just kill me! pt was placed on 5 minute safety checks. Refused Vraylar this morning. 02/19 Patient says she is feeling pretty good wants discharge today. She denies any SI or urges to self-harm. She says that she now realizes she already had a therapist, someone at [facility] named either Abdiel or Cherry. Also says she has psychiatrist that she set up on her own. Patient says she found a place to stay and will be staying at her mother's friend's house but that she needs to go to day. Manager Of Case Management inquired as to why she said because her mother is able to come and pick her up today but will not be available until later in the afternoon or evening on Thursday. Manager Of Case Management explained that team concluded that given patient struggles in the community it was in her best interest to hold her over the weekend so that aftercare can be thoroughly set up and that business writer agreed with this plan. Patient asked over and over for discharge today, saying it was not fair, saying that no one cares about her and people truly do not want to help her. That said she was able to remain in overall good behavioral and impulse control. -Regarding medication, she says she will continue taking Lamictal. However she does not want Vraylar; after having read about it she does not like side-effect profile 02/20 Patient calm most of the day. Towards the later afternoon she started crying saying she no longer has any were to go. Patient was going to go to stay with a friend of her mother's. Manager Of Case Management tried to discuss; patient said her mom no longer wants to go there , worried that patient will ruin her reputation... Patient tearful saying she has no where to go. Manager Of Case Management tried to discuss disposition plans but patient did not want to talk further. 02/21 Increase Lamictal to 25 mg daily Applications initiated for [facility], Housing, Disability Care discussed with father and boyfriend with pt present. She is feeling supported. impression: Manager Of Case Management agrees that discharging patient on the weekend is premature given her behaviors and struggles in the community prior to this admission; she remains with highly emotionally reactive and as recently as just yesterday she was yelling in the hallway for someone to kill her. Manager Of Case Management understands that in the moment patient is just expressing herself and not actually wanting to ; however it seems in her best interest that she remain on the unit for her primary team to return so that she can receive the benefits from social work helping to secure a more stable discharge plan; it seems very unlikely that she has set up for herself a reliable therapist and prescriber, both of which she will need in order to remain stable, between Thursday evening and today. Plan: Admit, CV, 15 minute checks EKG Continue Lamictal Will discontinue Vraylar since she is refusing to take it Continue Olanzapine prn Full milieu encouraged Collateral Contact Discharge planning Reason for continued inpatient stay Substantial Risk for: rapid decompensation Time Spent With Patient Time: Total time managing care of this patient today ____ minutes.
[2024-02-22 20:00] VITALS: BP 123/80; PULSE 102; RESP 16; TEMP 36.7; O2SAT 95
[2024-02-22] MEDS: lamoTRIgine 25 MG TABLET PO (20:02)
[2024-02-22] MEDS: hydrOXYzine HCL 25 MG TABLET PO (20:02)
[2024-02-23 08:00] VITALS: BP 122/70; PULSE 88; RESP 16; TEMP 36.6; O2SAT 97
--- NOTE | 2024-02-23 11:00 | HO.PSYCHPN ---
Subjective Subjective Date of Service: 02/23/24 Reason For Visit: depressed/SI Subjective Notes: Conditional Voluntary Healthcare Proxy: No Guardianship: No Medical Problems Affecting Mental Status: No Interim History: Pt continues to work on applications for services with DM, Housing, [facility], Disability. She talked of her history-one [facility] brief admit age 8, OP treatment with Rolanda [facility] that ended and not really having consistent OP providers so issues could be addressed. Reviewed options for housing-team is working on-she is willing to make calls to discuss her situation and family not being able to help. She talked of a possible place to stay with a friend of mother's that she does not really know and has some discomfort with-stating she worries she will not be accepted by mother's friend. Call to mother, Rolanda [phone] who reports there are no family options and pt cannot return to the family home as her has a younger child and believes that pt's influence on this child would be negative.Asked Rolanda to discuss with family as we discussed concerns with pt's level of maturity and inability to navigate adult [facility] systems safey. She verbalized agreement and will talk with her mother about possible options. Pt is appropriate in the milieu, at times unsupportive of peers and needs redirection and education, yet is able to respond to this effort well and incorporate what she has learned with discussion and processing. Medication Compliance: Yes Side effects from medications: No Attending Groups: Yes Review of Systems Acute medical concerns: No Medical Review of Systems: unchanged Review of Systems Review of Systems Yes all other systems are reviewed and are negative Mental Status Exam Mental Status Exam Patient Appearance: Appropriate Patient Orientation: Person, Place, Time and Situation Level of Consciousness: Alert Patient Behavior: Appropriate, Talkative, Cooperative, Anxious, Distractible and Good Eye Contact Mood Description: Anxious and Apprehensive Affect Description: Anxious and Apprehensive Patient Cognition Impaired: No Ability to Follow Directions: Fair Speech Pattern: Spontaneous Speech Memory Description: Intact Hallucinations: None Delusions: Not Present Thought Process: Distracted Thought Content: positive for Circumstantial Depressive Symptoms: Difficulty Concentrating Abnormal Motor Activity Signs and Symptoms: Restlessness Judgement: Fair Diagnostics Vital Signs (24Hr): Vital Signs - 24 hr 02/22/24 20:00 02/23/24 08:00 Temperature 98.0 F 97.8 F Pulse Rate 102 H 88 Respiratory Rate 16 16 Blood Pressure 123/80 122/70 Pulse Oximetry 95 97 Oxygen Delivery Method Room Air Room Air BMI result Body Mass Index 37.3 Labs 02/13/24 06:39 02/13/24 06:39 Medications Medications Current Medications Acetaminophen (Acetaminophen 325 Mg Tablet) 650 mg PO Q6H PRN PRN Reason: Headache/Pain Mild Scale (1-3) Last Admin: 02/15/24 21:09 Dose: 650 mg Al Hydroxide/Mg Hydroxide (Magnesium Hydrox/Alum Hydrox 30 Ml Oral.Susp) 30 ml PO Q6H PRN PRN Reason: Heartburn/Nausea Hydroxyzine HCl (Hydroxyzine Hcl 25 Mg Tablet) 25 mg PO Q6H PRN PRN Reason: Anxiety Last Admin: 02/22/24 20:02 Dose: 25 mg Lamotrigine (Lamotrigine 25 Mg Tablet) 25 mg PO BEDTIME YOSHI Last Admin: 02/22/24 20:02 Dose: 25 mg Magnesium Hydroxide (Milk Of Magnesia 30 Ml Oral.Susp) 30 ml PO DAILY PRN PRN Reason: Constipation Nicotine (Nicotine 21 Mg Patch.Td24) 21 mg TRANSDERMA DAILY PRN PRN Reason: smoking cessation Nicotine Polacrilex (Nicotine Polacrilex 2 Mg Gum) 4 mg BUCCAL Q2H PRN PRN Reason: Nicotine Cravings Olanzapine (Olanzapine 5 Mg Tablet) 5 mg PO TID PRN PRN Reason: agitation Last Admin: 02/20/24 20:30 Dose: 5 mg Allergies Allergies Allergy/AdvReac Type Severity Reaction Status Date / Time No Known Allergies Allergy Verified 02/13/24 04:59 Assessment & Plan Assessment & Plan (1) Bipolar disorder: Status: Acute Code(s): F31.9 - Bipolar disorder, unspecified Plan Bipolar Disorder. 02/17- Vraylar 1.5 mg daily Lamictal 12.5 mg daily 02/18: Labile. Calm and cooperative when meeting with patient. She reports he father plans on finding her a place to stay after discharge. Pt stated, I was feeling suicidal because [employer] feels like jail and I didn't have time to do the things I wanted to do . Later on, pt observed crying loudly in room stating, I don't want to live anymore! Someone just kill me! pt was placed on 5 minute safety checks. Refused Vraylar this morning. 02/19 Patient says she is feeling pretty good wants discharge today. She denies any SI or urges to self-harm. She says that she now realizes she already had a therapist, someone at [facility] named either Abdiel or Cherry. Also says she has psychiatrist that she set up on her own. Patient says she found a place to stay and will be staying at her mother's friend's house but that she needs to go to day. Inspector Hairspring Truing inquired as to why she said because her mother is able to come and pick her up today but will not be available until later in the afternoon or evening on Thursday. Inspector Hairspring Truing explained that team concluded that given patient struggles in the community it was in her best interest to hold her over the weekend so that aftercare can be thoroughly set up and that residential mortgage underwriter agreed with this plan. Patient asked over and over for discharge today, saying it was not fair, saying that no one cares about her and people truly do not want to help her. That said she was able to remain in overall good behavioral and impulse control. -Regarding medication, she says she will continue taking Lamictal. However she does not want Vraylar; after having read about it she does not like side-effect profile 02/20 Patient calm most of the day. Towards the later afternoon she started crying saying she no longer has any were to go. Patient was going to go to stay with a friend of her mother's. Inspector [employer]spring Truing tried to discuss; patient said her mom no longer wants to go there , worried that patient will ruin her reputation... Patient tearful saying she has no where to go. Inspector Hairspring Truing tried to discuss disposition plans but patient did not want to talk further impression: Inspector Hairspring Truing agrees that discharging patient on the weekend is premature given her behaviors and struggles in the community prior to this admission; she remains with highly emotionally reactive and as recently as just yesterday she was yelling in the hallway for someone to kill her. Inspector Hairspring Truing understands that in the moment patient is just expressing herself and not actually wanting to ; however it seems in her best interest that she remain on the unit for her primary team to return so that she can receive the benefits from social work helping to secure a more stable discharge plan; it seems very unlikely that she has set up for herself a reliable therapist and prescriber, both of which she will need in order to remain stable, between Thursday evening and today. 02/23/24: Continue tx. Plan: Admit, CV, 15 minute checks EKG Continue Lamictal Will discontinue Vraylar since she is refusing to take it Continue Olanzapine prn Full milieu encouraged Collateral Contact Discharge planning Reason for continued inpatient stay Substantial Risk for: rapid decompensation Time Spent With Patient Time: Total time managing care of this patient today ____ minutes.
[2024-02-23 19:48] VITALS: BP 113/66; PULSE 79; RESP 18; TEMP 36.9; O2SAT 100
[2024-02-23] MEDS: lamoTRIgine 25 MG TABLET PO (20:10)
[2024-02-23] MEDS: hydrOXYzine HCL 25 MG TABLET PO (20:10)
[2024-02-24 09:05] VITALS: BP 127/70; PULSE 97; RESP 18; TEMP 36.3; O2SAT 97
--- NOTE | 2024-02-24 19:04 | HO.PSYCHPN ---
Subjective Subjective Date of Service: 02/24/24 Reason For Visit: depressed/SI Subjective Notes: Conditional Voluntary Healthcare Proxy: No Guardianship: No Medical Problems Affecting Mental Status: No Interim History: Team has provided pt with a list of resource numbers for her to make calls for housing and associated services. Team has highlighted important numbers and resources she has been encouraged to explore. Continues to work on applications for housing, [facility]. Will call to begin disability application processes. Reports feeling overwhelmed at times, but feels she can progress forward. Team is discussing [facility]CS with pt, use of [facility] and [facility]. Reports she is tolerating Lamictal without adverse effects. Medication Compliance: Yes Side effects from medications: No Attending Groups: Intermittent Review of Systems Acute medical concerns: No Medical Review of Systems: unchanged Review of Systems Review of Systems Yes all other systems are reviewed and are negative Mental Status Exam Mental Status Exam Patient Appearance: Appropriate Patient Orientation: Person, Place, Time and Situation Level of Consciousness: Alert Patient Behavior: Appropriate, Talkative, Cooperative, Anxious, Distractible and Good Eye Contact Mood Description: Anxious and Apprehensive Affect Description: Anxious and Apprehensive Patient Cognition Impaired: No Ability to Follow Directions: Fair Speech Pattern: Spontaneous Speech Memory Description: Intact Hallucinations: None Delusions: Not Present Thought Process: Distracted Thought Content: positive for Circumstantial Depressive Symptoms: Difficulty Concentrating Abnormal Motor Activity Signs and Symptoms: Restlessness Judgement: Fair Diagnostics Vital Signs (24Hr): Vital Signs - 24 hr 02/23/24 19:48 02/24/24 09:05 Temperature 98.4 F 97.3 F Pulse Rate 79 97 Respiratory Rate 18 18 Blood Pressure 113/66 127/70 Pulse Oximetry 100 97 Oxygen Delivery Method Room Air Room Air BMI result Body Mass Index 37.3 Labs 02/13/24 06:39 02/13/24 06:39 Medications Medications Current Medications Acetaminophen (Acetaminophen 325 Mg Tablet) 650 mg PO Q6H PRN PRN Reason: Headache/Pain Mild Scale (1-3) Last Admin: 02/15/24 21:09 Dose: 650 mg Al Hydroxide/Mg Hydroxide (Magnesium Hydrox/Alum Hydrox 30 Ml Oral.Susp) 30 ml PO Q6H PRN PRN Reason: Heartburn/Nausea Hydroxyzine HCl (Hydroxyzine Hcl 25 Mg Tablet) 25 mg PO Q6H PRN PRN Reason: Anxiety Last Admin: 02/23/24 20:10 Dose: 25 mg Lamotrigine (Lamotrigine 25 Mg Tablet) 25 mg PO BEDTIME YOSHI Last Admin: 02/23/24 20:10 Dose: 25 mg Magnesium Hydroxide (Milk Of Magnesia 30 Ml Oral.Susp) 30 ml PO DAILY PRN PRN Reason: Constipation Nicotine (Nicotine 21 Mg Patch.Td24) 21 mg TRANSDERMA DAILY PRN PRN Reason: smoking cessation Nicotine Polacrilex (Nicotine Polacrilex 2 Mg Gum) 4 mg BUCCAL Q2H PRN PRN Reason: Nicotine Cravings Olanzapine (Olanzapine 5 Mg Tablet) 5 mg PO TID PRN PRN Reason: agitation Last Admin: 02/20/24 20:30 Dose: 5 mg Allergies Allergies Allergy/AdvReac Type Severity Reaction Status Date / Time No Known Allergies Allergy Verified 02/13/24 04:59 Assessment & Plan Assessment & Plan (1) Bipolar disorder: Status: Acute Code(s): F31.9 - Bipolar disorder, unspecified Plan Bipolar Disorder. 02/17- Vraylar 1.5 mg daily Lamictal 12.5 mg daily 02/18: Labile. Calm and cooperative when meeting with patient. She reports he father plans on finding her a place to stay after discharge. Pt stated, I was feeling suicidal because [employer] feels like long-term and I didn't have time to do the things I wanted to do . Later on, pt observed crying loudly in room stating, I don't want to live anymore! Someone just kill me! pt was placed on 5 minute safety checks. Refused Vraylar this morning. 02/19 Patient says she is feeling pretty good wants discharge today. She denies any SI or urges to self-harm. She says that she now realizes she already had a therapist, someone at [facility]NOTE 2] named either Abdiel or Cherry. Also says she has psychiatrist that she set up on her own. Patient says she found a place to stay and will be staying at her mother's friend's house but that she needs to go to day. Teachers' Assistant inquired as to why she said because her mother is able to come and pick her up today but will not be available until later in the afternoon or evening on Thursday. Teachers' Assistant explained that team concluded that given patient struggles in the community it was in her best interest to hold her over the weekend so that aftercare can be thoroughly set up and that typewriters functional tester agreed with this plan. Patient asked over and over for discharge today, saying it was not fair, saying that no one cares about her and people truly do not want to help her. That said she was able to remain in overall good behavioral and impulse control. -Regarding medication, she says she will continue taking Lamictal. However she does not want Vraylar; after having read about it she does not like side-effect profile 02/20 Patient calm most of the day. Towards the later afternoon she started crying saying she no longer has any were to go. Patient was going to go to stay with a friend of her mother's. Teachers' Assistant tried to discuss; patient said her mom no longer wants to go there , worried that patient will ruin her reputation... Patient tearful saying she has no where to go. Teachers' Assistant tried to discuss disposition plans but patient did not want to talk further impression: Teachers' Assistant agrees that discharging patient on the weekend is premature given her behaviors and struggles in the community prior to this admission; she remains with highly emotionally reactive and as recently as just yesterday she was yelling in the hallway for someone to kill her. Teachers' Assistant understands that in the moment patient is just expressing herself and not actually wanting to ; however it seems in her best interest that she remain on the unit for her primary team to return so that she can receive the benefits from social work helping to secure a more stable discharge plan; it seems very unlikely that she has set up for herself a reliable therapist and prescriber, both of which she will need in order to remain stable, between Thursday and today. 02/23/24: Continue tx. 02/24/24: Pt making community connections regarding her living situation. Team is directing her to useful resources and have applied for CCS admission that is pending a decision Plan: Admit, CV, 15 minute checks EKG Continue Lamictal Will discontinue Vraylar since she is refusing to take it Continue Olanzapine prn Full milieu encouraged Collateral Contact Discharge planning Reason for continued inpatient stay Substantial Risk for: rapid decompensation Time Spent With Patient Time: Total time managing care of this patient today ____ minutes.
[2024-02-24 20:00] VITALS: BP 121/73; PULSE 89; RESP 16; TEMP 36.9; O2SAT 99
[2024-02-24] MEDS: lamoTRIgine 25 MG TABLET PO (20:04)
[2024-02-24] MEDS: hydrOXYzine HCL 25 MG TABLET PO (20:04)
[2024-02-25 08:00] VITALS: RESP 18
--- NOTE | 2024-02-25 09:50 | PM.PSYDC ---
DS: Providers Provider Date of Service: 02/25/24 Date of admission: 02/15/24 12:25 Date of discharge: 02/25/24 Primary care physician: Unknown Physician Admitting clinician: Marlena Sanchez Attending physician on admission: Suleiman Hsu Attending physician on discharge: Suleiman Hsu Discharging clinician: Marlena Sanchez DS: Diagnosis Discharge Diagnosis (1) Bipolar disorder: Status: Acute DS: Medications Discharge Medications Home Medications: Home Medications ?Medication ?Instructions ?Recorded ?Confirmed No Known Home Meds 02/13/24 02/13/24 Previous Rx's ?Medication ?Instructions ?Recorded hydroxyzine HCl 25 mg tablet 25 mg PO Q6H PRN Anxiety #60 tabs 02/25/24 lamotrigine 25 mg tablet 25 mg PO BEDTIME #30 tabs 02/25/24 olanzapine 5 mg tablet 5 mg PO TID PRN agitation #60 tabs 02/25/24 Mental Status Exam Mental Status Exam Patient Appearance: Appropriate Patient Orientation: Person, Place, Time and Situation Level of Consciousness: Alert Patient Behavior: Appropriate, Talkative, Cooperative, Anxious, Distractible and Good Eye Contact Mood Description: Anxious and Apprehensive Affect Description: Anxious and Apprehensive Patient Cognition Impaired: No Ability to Follow Directions: Fair Speech Pattern: Spontaneous Speech Memory Description: Intact Hallucinations: None Delusions: Not Present Thought Process: Distracted Thought Content: positive for Circumstantial Depressive Symptoms: Difficulty Concentrating Abnormal Motor Activity Signs and Symptoms: Restlessness Judgement: Fair DS: Summary Hospital Course Hospital Course: Admission to adult psychiatry for exacerbation of bipolar disorder. Hx of ADD,ODD. Pt abruptly stopped medications prior to admission with SI and SIBS resulting along with poor appetite, insomnia, weight loss and irritability. She was asked to take a medical DIANA from [facility] until she stabilized. As a result, she had a status change to being homeless as mother will not allow her to return home due to behaviors, [place] and is unable to provide housing and extended family have all declined her housing due to behavioral dyscontrol. Boyfriend is a support but unable to provide housing due to his own current limitations. Medications were reviewed. Lamictal was restarted. Pt refused Abilify. Geodon was offered, pt refused. Olanzapine prn was added. Initially, pt had significant lability, behaviors and refusal of treatment. This resolved with milieu work, re-starting of low dose Lamictal and increased alliances with the team. She was found to do well with added support and coaching. By the time of discharge pt was fully participating in her plan of care and talking about moving forward with her life. [facility] and housing applications were completed and sent. Pt was given information on how to initiate the disability process via phone and given information about [facility]. She was accepted to [facility] as her next step in transition, has a number of resources to contact for housing and related services and will follow up as an out patient with [facility] and other programs that may offer her resources. She will call or return to [facility] as needed. Status at Discharge Functional status at discharge: independent ambulation Overall status at discharge: patient is back to baseline Time Spent with Patient Time attestation: Total time managing care of this patient today ____ minutes. Time spent: Less than 30 minutes Discharge Plan Discharge Anticipated Discharge Date/Time: 02/25/24 12:00 Patient Disposition: Xfer Other Discharge Diagnosis: Bipolar Disorder ADHD Oppositional Defiant Disorder Referrals: Dorcas Last: [facility] [employer] [facility] [Other] - 03/08/24 10:00 am (Hospital discharge appointment Initial diagnostic evaluation for therapy. Appointment in person at [facility] in [place].) Mekhi Arechiga:[facility] [employer] ([facility]):psychiatry [Other] - 03/24/24 12:00 pm (Hospital discharge appointment Initial psychiatric evaluation for psychiatric medication management services. Appointment in person at [facility] in [place]) [facility]: [facility] [Other] - 1 Week (Information for [facility] Rapid Rehousing Program for 18-24 y/o. You should call and and advocate on your behalf for consideration to be admitted to program. ) [facility] [employer] Program [Other] - 1 Week (Information for [facility] [employer] program You should call and advocate to program for consideration of acceptance to program ) Department of mental health (DM) [Other] - 03/03/24 (Referral to department of mental health ([facility]) [facility] will review application and contact you regarding referral. It can take up to 90 days. Call in one week to follow-up on application.) Physician,Unknown J [Primary Care Provider] - 1 Week Discharge Medications: New olanzapine 5 mg Tablet 5 mg PO TID PRN (Reason: agitation) Qty: 60 0RF lamotrigine 25 mg Tablet 25 mg PO BEDTIME Qty: 30 0RF hydroxyzine HCl 25 mg Tablet 25 mg PO Q6H PRN (Reason: Anxiety) Qty: 60 0RF No Action No Known Home Meds Discharge Orders: Discharge Order (Routine); Ordered 02/25/24 Ordered By: Marlena Sanchez Diet: Advance to usual diet Activity on Discharge: As tolerated Stand Alone Forms: Patient Portal Discharge page, Community Support Print Language: Turkish Care Plan Goals: Mood and Behavioral Stabilization Health Concerns: Mood and Behavioral Stabilization Plan of Treatment: Attend scheduled appointments Take medications as directed Call to begin your application for disability [phone] [facility] will file an application for [facility] Services for you. [facility] has mailed an application for housing in [place] for you. Call [facility] to make an appointment to discuss work options [phone]. Assessment: Discharge to respite No SI/HI/AH/VH sx of ochoa, psychosis Discharge Date/Time: 02/25/24 16:33
== END 2024-02-25 16:33 | disposition other institution (70) | DRG 753 ==
LOC: HO.ED 13:15 → HO.PM5 02-15 12:35
PROVIDERS: Physician Assistant; Admitting Provider Psychiatry & Neurology Psychiatry; Emergency Provider Emergency Medicine; Visit Provider Clinical Nurse Specialist Psychiatric/Mental Health, Adult
DX: F31.9 Bipolar disorder, unspecified (principal); R45.851 Suicidal ideations; F90.9 Attention-deficit hyperactivity disorder, unspecified type; F91.3 Oppositional defiant disorder; Z91.52 Personal history of nonsuicidal self-harm; Z79.899 Other long term (current) drug therapy
CPT/HCPCS: 36415; 80048; 80061; 80076; 80307; 81003; 81025; 83036; 83735; 84443; 85025; 99285; S9485

== ENCOUNTER → 2024-02-15 12:25 | Outpatient (BNV) | payer OTHER, SELFPAY | PROVIDERS: Admitting Provider Psychiatry & Neurology Psychiatry; Emergency Provider Emergency Medicine; Visit Provider Clinical Nurse Specialist Psychiatric/Mental Health, Adult | DX: F31.4 Bipolar disorder, current episode depressed, severe, without psychotic features (principal) | CPT/HCPCS: 99231; 99232 ==